=== PATIENT | female | born 1995 ===

== ENCOUNTER 2020-03-19 02:15 | Inpatient (IN) | payer OTHER ==
[2020-03-19] MEDS ORDERED: ELECTROLYTE-148 SOLN 500 ML IV ONE (14:37)
[2020-03-19] MEDS ORDERED: CITRIC ACID/SODIUM CITRATE 30 ML UNIT-DOSE CUP PO ONE ×2 (14:37→15:36)
--- NOTE | 2020-03-19 14:47 | HP ---
Past Medical History - Admission Chief Complaint: contractions History Source: Patient Limitations to Obtaining History: No Limitations - Past Medical History ...: 2 ...Para: 1 ...LMP: 07/09/19 ... Weeks Gestation by Dates: 37.5 ...EDC by Sono: 04/07/20 - Past Surgical History Past Surgical History: Yes: Hx Myomectomy: No Hx Transabdominal Cerclage: No - Smoking History Smoking history: Never smoked Have you smoked in the past 12 months: No - Alcohol/Substance Use Hx Alcohol Use: No History of Substance Use: reports: None - Social History Usual Living Arrangement: Yes: With Spouse Do you think of yourself as: Straight/Heterosexual ADL: Independent History of Recent Travel: No Home Medications - Allergies Allergies/Adverse Reactions: Allergies Allergy/AdvReac Type Severity Reaction Status Date / Time No Known Allergies Allergy Verified 03/19/20 14:45 Review of Systems - Review of Systems Constitutional: reports: No Symptoms Eyes: reports: No Symptoms HENT: reports: No Symptoms Neck: reports: No Symptoms Cardiovascular: reports: No Symptoms Respiratory: reports: No Symptoms Gastrointestinal: reports: No Symptoms Genitourinary: reports: No Symptoms Breasts: reports: No Symptoms Reported Musculoskeletal: reports: No Symptoms Integumentary: reports: No Symptoms Neurological: reports: No Symptoms Endocrine: reports: No Symptoms Hematology/Lymphatic: reports: No Symptoms Psychiatric: reports: No Symptoms Physical Exam - Maternity Constitutional: Yes: Well Nourished Eyes: Yes: WNL HENT: Yes: WNL Neck: Yes: WNL Cardiovascular: Yes: WNL Lungs: Clear to auscultation Breast(s): Yes: WNL - Abdominal Exam/OB Number of Fetuses: Single Presentation: Vertex Contractions: Yes Regularity: Regular Intensity: Mild Monitor Mode: External Category: I Accelerations: Uniform Decelerations: None - Vaginal Exam/OB Vaginal Bleeding: No Speculum Exam: No Amniotic Membrane Status: Intact Presentation: Vertex/Position Station: -2 - Physical Exam Musculoskeletal: Yes: WNL Extremities: Yes: WNL Integumentary: Yes: WNL ...Motor Strength: WNL Psychiatric: Yes: WNL Assessment/Plan IUP at 37+5 grade 3 placenta previous contractions plan repeat section
[2020-03-19 15:29] VITALS: BMI 25.9
[2020-03-19] MEDS ORDERED: ELECTROLYTE-148 SOLN 1,000 ML IV SCH (15:45)
[2020-03-19 16:03] LABS: INR 0.92 (0.83-1.09); PROTHROMBIN TIME (PATIENT) 10.9 SEC (9.7-13.0)
[2020-03-19 16:06] LABS: ACTIVATED PTT 29.7 SECONDS (25.2-36.5)
[2020-03-19 16:27] LABS: BLOOD UREA NITROGEN 11.5 mg/dL (7-18); CREATININE 0.5 mg/dL (0.55-1.3); POTASSIUM 4.3 mmol/L (3.5-5.1)
[2020-03-19 16:51] LABS: BASO % 0.1 % (0-2.0); EOS % 0.1 % (0-4.5); HEMATOCRIT 33.2 % (32.4-45.2); HEMOGLOBIN 10.5 GM/dL (10.7-15.3); LYMPH % 12.7 % (8-40); MCHC 31.8 g/dl (32.0-36.0); MEAN PLT VOLUME 10.9 fl (7.5-11.1); MONO % 8.4 % (3.8-10.2); NEUT % 78.7 % (42.8-82.8); PLATELET COUNT 229 K/MM3 (134-434); RBC 4.04 M/mm3 (3.60-5.2); RDW 15.3 % (11.6-15.6); WHITE BLOOD COUNT 11.9 K/mm3 (4.0-10.0)
[2020-03-19] MEDS ORDERED: PHENYLEPHRINE HCL 10 MG/1 ML SINGLE DOSE VIAL ONE (16:52)
[2020-03-19] MEDS ORDERED: morphine SULFATE/PF 0.5 MG/ML (2cc Syringe - QUVA) ONE (16:53)
[2020-03-19] MEDS ORDERED: ePHEDrine SULFATE 50 MG/1 ML AMPULE ONE (16:54)
[2020-03-19] MEDS ORDERED: PROPOFOL 20 ML ONE (16:54)
[2020-03-19] MEDS ORDERED: SUCCINYLCHOLINE CHLORIDE 200 MG/10 ML SYRINGE ONE (16:54)
[2020-03-19] MEDS ORDERED: KETOROLAC TROMETHAMINE 30 MG/1 ML VIAL IVPUSH PRN (17:32)
--- NOTE | 2020-03-19 17:34 | OP ---
Operative Note - Note: Operative Date: 03/19/20 Pre-Operative Diagnosis: previous . in labor Operation: repeat section. pfanensteel abdominal. low transverse uterine incision Post-Operative Diagnosis: Same as Pre-op Surgeon: Kang Chopra School Cleaner: Drake العراقي Anesthesia: Spinal Estimated Blood Loss (mls): 600 Operative Report Dictated: Yes
[2020-03-19] MEDS ORDERED: OXYTOCIN 20 UNITS in 0.9% NS 20 UNIT/1,000 ML INFUS.BAG IV ONE (17:54)
[2020-03-19] MEDS ORDERED: OXYTOCIN 20 UNITS in 0.9% NS 20 UNIT/1,000 ML INFUS.BAG IV SCH (18:00)
[2020-03-19 19:16] LABS: CORD BASE EXCESS -2.6 mmol/L (0-2); CORD HCO3 24.5 mmHg (20-29); CORD PCO2 50.4 mmHg (30-78); CORD pH 7.305 (7.14-7.44)
[2020-03-19 19:18] LABS: CORD HCO3 22.2 mmHg (20-29); CORD PCO2 53.5 mmHg (30-78); CORD pH 7.235 (7.14-7.44)
[2020-03-20] MEDS ORDERED: METHYLERGONOVINE MALEATE 0.2 MG/1 ML AMP IM ONE (03:25)
[2020-03-20] MEDS: IBUPROFEN 600 MG TABLET (FP) PO PRN ×2 (03:38→18:23)
[2020-03-20 08:54] LABS: BASO % 0.2 % (0-2.0); HEMOGLOBIN 9.4 GM/dL (10.7-15.3); LYMPH % 10.8 % (8-40); MCH 26.4 pg (25.7-33.7); MCHC 32.4 g/dl (32.0-36.0); MEAN CELL VOLUME 81.3 fl (80-96); MEAN PLT VOLUME 10.6 fl (7.5-11.1); MONO % 9.4 % (3.8-10.2); NEUT % 79.6 % (42.8-82.8); PLATELET COUNT 235 K/MM3 (134-434); RBC 3.57 M/mm3 (3.60-5.2); RDW 15.2 % (11.6-15.6)
--- NOTE | 2020-03-20 10:54 | PN ---
Progress Note (short form) - Note Progress Note: Anesthesia Post Note: s/p c section under spinal anesthesia post op day one, intrathecal duramorph for post op pain control patient is doing well, pain under control, minimal itching, no nausea or vomiting, no adverse anesthetic complications. dept of anesthesiology will sign off on care at this time
--- NOTE | 2020-03-20 11:55 | PN ---
Post Progress Note Post Day: 1 Type of Delivery: Repeat C/S Vital Signs: Vital Signs Temperature 97.8 F 03/20/20 10:00 Pulse Rate 100 H 03/20/20 10:00 Respiratory Rate 20 03/20/20 10:00 Blood Pressure 99/67 03/20/20 10:00 O2 Sat by Pulse Oximetry (%) 98 03/20/20 10:00 Breast Exam: Yes: Soft Uterus: Yes: Fundus Firm Incision: Yes: Dressing dry and intact Abdomen/GI: Yes: Abdomen soft Lochia: Yes: Rubra Lochia, amount: Small Activity: Ambulating - Labs Labs: CBC WBC 12.0 K/mm3 (4.0-10.0) H 03/20/20 07:50 RBC 3.57 M/mm3 (3.60-5.2) L 03/20/20 07:50 Hgb 9.4 GM/dL (10.7-15.3) L 03/20/20 07:50 Hct 29.0 % (32.4-45.2) L 03/20/20 07:50 MCV 81.3 fl (80-96) 03/20/20 07:50 MCH 26.4 pg (25.7-33.7) 03/20/20 07:50 MCHC 32.4 g/dl (32.0-36.0) 03/20/20 07:50 RDW 15.2 % (11.6-15.6) 03/20/20 07:50 Plt Count 235 K/MM3 (134-434) 03/20/20 07:50 MPV 10.6 fl (7.5-11.1) 03/20/20 07:50 Absolute Neuts (auto) 9.6 K/mm3 (1.5-8.0) H 03/20/20 07:50 Neutrophils % 79.6 % (42.8-82.8) 03/20/20 07:50 Lymphocytes % 10.8 % (8-40) 03/20/20 07:50 Monocytes % 9.4 % (3.8-10.2) 03/20/20 07:50 Eosinophils % 0.0 % (0-4.5) D 03/20/20 07:50 Basophils % 0.2 % (0-2.0) 03/20/20 07:50 Nucleated RBC % 0 % (0-0) 03/20/20 07:50 Assessment/Plan s/p repeat C/S x2, hemodynamically stable Monitor vitals Pain management Ambulation encouraged Dressing to be removed in AM Consider discharge home in 1-2 days
[2020-03-20] MEDS ORDERED: BISACODYL 10 MG SUPP.RECT RC PRN (17:30)
[2020-03-20] MEDS: SIMETHICONE 80 MG TAB.CHEW (FP) PO PRN (18:23)
[2020-03-21] MEDS ORDERED: DIPHTH,PERTUSS(ACELL),TET 0.5 ML DISP.SYRIN IM ONE (10:00)
[2020-03-21] MEDS: SIMETHICONE 80 MG TAB.CHEW (FP) PO PRN (10:24)
[2020-03-21] MEDS: IBUPROFEN 600 MG TABLET (FP) PO PRN ×2 (10:24→21:48)
--- NOTE | 2020-03-21 13:03 | PN ---
Post Progress Note Post Day: 2 Type of Delivery: Repeat C/S Vital Signs: Vital Signs Temperature 98.2 F 03/21/20 10:00 Pulse Rate 102 H 03/21/20 10:00 Respiratory Rate 18 03/21/20 10:00 Blood Pressure 111/66 03/21/20 10:00 O2 Sat by Pulse Oximetry (%) 97 03/21/20 10:00 Breast Exam: Yes: Soft Uterus: Yes: Fundus Firm, Fundus below umbilicus, Non-tender Incision: Yes: Dressing dry and intact Abdomen/GI: Yes: Abdomen soft, Tolerating PO Lochia: Yes: Rubra Lochia, amount: Small Activity: Ambulating - Labs Labs: CBC WBC 12.0 K/mm3 (4.0-10.0) H 03/20/20 07:50 RBC 3.57 M/mm3 (3.60-5.2) L 03/20/20 07:50 Hgb 9.4 GM/dL (10.7-15.3) L 03/20/20 07:50 Hct 29.0 % (32.4-45.2) L 03/20/20 07:50 MCV 81.3 fl (80-96) 03/20/20 07:50 MCH 26.4 pg (25.7-33.7) 03/20/20 07:50 MCHC 32.4 g/dl (32.0-36.0) 03/20/20 07:50 RDW 15.2 % (11.6-15.6) 03/20/20 07:50 Plt Count 235 K/MM3 (134-434) 03/20/20 07:50 MPV 10.6 fl (7.5-11.1) 03/20/20 07:50 Absolute Neuts (auto) 9.6 K/mm3 (1.5-8.0) H 03/20/20 07:50 Neutrophils % 79.6 % (42.8-82.8) 03/20/20 07:50 Lymphocytes % 10.8 % (8-40) 03/20/20 07:50 Monocytes % 9.4 % (3.8-10.2) 03/20/20 07:50 Eosinophils % 0.0 % (0-4.5) D 03/20/20 07:50 Basophils % 0.2 % (0-2.0) 03/20/20 07:50 Nucleated RBC % 0 % (0-0) 03/20/20 07:50 Assessment/Plan S/P delivery, pod # 2, passed flatus Continue management
[2020-03-21] MEDS: FERROUS SO4 325 MG TABLET (FP) PO SCH ×2 (13:20→21:48)
[2020-03-22 01:07] VITALS: TEMP 97.8
[2020-03-22 08:52] LABS: BASO % 0.4 % (0-2.0); EOS % 0.1 % (0-4.5); HEMATOCRIT 27.2 % (32.4-45.2); HEMOGLOBIN 8.8 GM/dL (10.7-15.3); LYMPH % 16.8 % (8-40); MCH 26.7 pg (25.7-33.7); MCHC 32.5 g/dl (32.0-36.0); MEAN CELL VOLUME 82.3 fl (80-96); MEAN PLT VOLUME 10.5 fl (7.5-11.1); MONO % 6.4 % (3.8-10.2); NEUT % 76.3 % (42.8-82.8); PLATELET COUNT 282 K/MM3 (134-434); RDW 15.2 % (11.6-15.6); WHITE BLOOD COUNT 10.6 K/mm3 (4.0-10.0)
[2020-03-22] MEDS: FERROUS SO4 325 MG TABLET (FP) PO SCH (10:30)
--- NOTE | 2020-03-22 11:08 | DS ---
Physical Exam-TIMBER PACKER Vital Signs: Vital Signs Temperature 97.8 F 03/21/20 22:00 Pulse Rate 116 H 03/21/20 22:00 Respiratory Rate 18 03/21/20 22:00 Blood Pressure 116/73 03/21/20 22:00 O2 Sat by Pulse Oximetry (%) 97 03/21/20 10:00 Constitutional: Yes: Well Nourished Eyes: Yes: WNL HENT: Yes: WNL Neck: Yes: WNL Cardiovascular: Yes: WNL Respiratory: Yes: WNL Internal Exam Deferred: Yes Uterus: Yes: Firm ....Post : Yes: Uterus firm, Slight lochia rubra Wound/Incision: Yes: Clean/Dry, [place] Intact Labs: CBC, BMP 03/22/20 08:20 03/19/20 14:50 Delivery - Delivery Section: Repeat Type of Anesthesia: Spinal Episiotomy/Laceration: None EBL (cc): 600 Delivery, Single - Stages of Labor Date 1st Stage Initiatied: 03/19/20 Time 1st Stage Initiated: 11:30 Date of Delivery: 03/19/20 Time of Delivery: 17:19 Time Placenta Delivered: 17:21 - Condition of Real Estate Attorney/Woolen Tester Present: Yes Name: Marilu Chou Infant Gender: Male Weight: 2.807 kg Position: Left, OT Total Hours ROM (Hrs/Mins): 1min. - 1 Minute Total Score: 9 5 Minutes Total Score: 9 - [place] Feeding Plan Initial Plan: Elected not to breastfeed exclusively throughout hospitalization Remarks - Remarks Remarks: s/p repeat c section Discharge Summary Reason For Visit: REPEAT C/S Procedures: Principal: repeat c section Condition: Good - Instructions Diet, Activity, Other Instructions: regular Disposition: HOME - Home Medications Comprehensive Discharge Medication List: Ambulatory Orders Vitamins (Sjr) - 1 tab PO DAILY 03/19/20
[2020-03-22 11:30] VITALS: BP 110/60; PULSE 90
--- NOTE | 2020-03-23 17:35 | PATH ---
Surgical Pathology Report Patient Name: CHRIS KIRKLAND Med. Rec. #: [id number] /Age/Gender: 1995 (Age: 24) / F Account: [id number] Location: [facility] OBS/FRAMING MANAGER Taken: 03/19/2020 Received: 03/20/2020 Reported: 03/23/2020 Physicians: Kang Chopra M.D. Specimen(s) Received PLACENTA Clinical History , 37 weeks gestation Grade 3 placenta CS 2017 Final Diagnosis PLACENTA, SECTION: 535 G THIRD TRIMESTER PLACENTA WITH TRIVASCULAR UMBILICAL CORD AND UNREMARKABLE PLACENTAL MEMBRANES. Electronically Signed Crystal Jennings M.D. Gross Description The specimen is received fresh labeled placenta and is a 535 gram, 20 x 15 x 1.5 cm. placenta with attached membranes and umbilical cord. The attached membranes are clear, translucent, and insert marginally. The umbilical cord measures 25 cm. in length and averages 1.5 cm. in diameter. The cord inserts eccentrically, 2 cm. to the nearest margin. No true knots or strictures are identified. Cut surface of the umbilical cord reveals 3 vessels. The surface is mckeon-blue with minimal fibrin deposition and appropriate caliber vessels. The maternal surface is red-brown with focal defects. Sectioning reveals red-brown, spongy parenchyma. No lesions are identified. Pasting Machine Offbearer sections are submitted in three cassettes as follows: 1- membrane rolls and umbilical cord; 2-3- full thickness sections of placenta. MLSZ/03/20/2020 sanml/03/20/2020
--- NOTE | 2020-03-26 11:19 | OP ---
DATE OF OPERATION: 03/19/2020 PREOPERATIVE DIAGNOSIS: Previous section in labor. POSTOPERATIVE DIAGNOSIS: Previous section in labor. OPERATION: Repeat section through a Pfannenstiel abdominal low transverse uterine incision. SURGEON: Paul Spears MD HOP TRAINER: ABDIFATAH Mclaughlin, no MD available. ANESTHESIA: Spinal. ESTIMATED BLOOD LOSS: 600 mL PROCEDURE: Following the successful induction of spinal anesthesia, patient was prepped and draped in the usual aseptic manner in the dorsal supine position. A Pfannenstiel abdominal incision was made and was carried down to the level of the fascia. Fascia was identified and entered. Peritoneal cavity was identified and entered. Upon entering the peritoneal cavity low transverse uterine incision was made and a baby was delivered to the electric switch tester in attendance. Following this, placental membranes were removed and the intrauterine contents were cleaned using a dry lap pad. Uterine incision was then identified using T clamps, then was closed No. 1 Vicryl in a continuous stitch locking every stitch. There was excellent hemostasis at the end of this procedure. Following this, the gutters were cleaned. The area was observed for hemostasis. Once there was noted to be excellent hemostasis, case was terminated. All instruments were removed. The fascia was closed using No. 1 Vicryl in a continuous stitch. Skin incision was closed using zoey. PAUL SPEARS MD /[id number]
== END 2020-03-22 13:25 | disposition home or self-care (01) | DRG 540 ==
LOC: JLDR 02:15 → J3W 19:45
PROVIDERS: ADMIT Specialist; ATTEND Specialist
PROC: 10D00Z1 Extraction of Products of Conception, Low, Open Approach (ICD-10-PCS; principal; 2020-03-19)
DX: O82 Encounter for cesarean delivery without indication (principal); O43.893 Other placental disorders, third trimester; Z98.891 History of uterine scar from previous surgery; Z3A.37 37 weeks gestation of pregnancy; Z37.0 Single live birth
CPT/HCPCS: 36415; 36600; 80048; 82803; 85025; 85610; 85730; 86850; 86900; 86901; 87389; 88307-TC; 90715; U0003